=== PATIENT | male | born 1980 ===

== ENCOUNTER 2023-11-24 01:02 | Emergency (ER) | payer SELFPAY ==
[2023-11-24] MEDS: KETOROLAC 15 MG/ML 1 ML VIAL IM STA (02:29)
[2023-11-24] MEDS: ORPHENADRINE 30 MG/ML 2 ML VIAL IM STA (02:29)
[2023-11-24] MEDS: LIDOCAINE 4% PATCH TOPICAL ONE (02:29)
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
[2023-11-24 03:32] VITALS: BP 136/91; PULSE 74; RESP 18; TEMP 97.6
== END 2023-11-24 03:13 | disposition home or self-care (01) ==
LOC: EC 01:02
DX: S22.089A Unspecified fracture of T11-T12 vertebra, initial encounter for closed fracture (principal); F17.200 Nicotine dependence, unspecified, uncomplicated; V49.50XA Passenger injured in collision with unspecified motor vehicles in traffic accident, initial encounter; Y92.410 Unspecified street and highway as the place of occurrence of the external cause
CPT/HCPCS: 72100; 99284; 96372 ×2; J2360; J1885